=== PATIENT | male | born 1945 | race Caucasian/White ===

== ENCOUNTER → 2016-07-06 | Outpatient (CLI) | payer OTHER, BC | LOC: HYPER 06-28 09:40 | DX: I83.023 Varicose veins of left lower extremity with ulcer of ankle (principal); L97.322 Non-pressure chronic ulcer of left ankle with fat layer exposed; I12.9 Hypertensive chronic kidney disease with stage 1 through stage 4 chronic kidney disease, or unspecified chronic kidney disease; N18.2 Chronic kidney disease, stage 2 (mild); E66.01 Morbid (severe) obesity due to excess calories; I83.209 Varicose veins of unspecified lower extremity with both ulcer of unspecified site and inflammation; I48.91 Unspecified atrial fibrillation ==

== ENCOUNTER → 2016-07-12 | Outpatient (CLI) | payer OTHER, BC | LOC: HYPER 07:09 | DX: I83.023 Varicose veins of left lower extremity with ulcer of ankle (principal); L97.321 Non-pressure chronic ulcer of left ankle limited to breakdown of skin; E66.01 Morbid (severe) obesity due to excess calories; F34.1 Dysthymic disorder; I51.7 Cardiomegaly; I48.0 Paroxysmal atrial fibrillation; C61 Malignant neoplasm of prostate; I12.9 Hypertensive chronic kidney disease with stage 1 through stage 4 chronic kidney disease, or unspecified chronic kidney disease; N18.2 Chronic kidney disease, stage 2 (mild); F15.90 Other stimulant use, unspecified, uncomplicated ==

== ENCOUNTER → 2016-08-08 | Outpatient (CLI) | payer OTHER, BC | LOC: HYPER 07:02 | DX: I83.023 Varicose veins of left lower extremity with ulcer of ankle (principal); L97.322 Non-pressure chronic ulcer of left ankle with fat layer exposed; I83.228 Varicose veins of left lower extremity with both ulcer of other part of lower extremity and inflammation; E66.01 Morbid (severe) obesity due to excess calories; I48.0 Paroxysmal atrial fibrillation; I12.9 Hypertensive chronic kidney disease with stage 1 through stage 4 chronic kidney disease, or unspecified chronic kidney disease; N18.2 Chronic kidney disease, stage 2 (mild); Z68.43 Body mass index [BMI] 50.0-59.9, adult; Z85.46 Personal history of malignant neoplasm of prostate ==

== ENCOUNTER → 2016-08-29 | Outpatient (CLI) | payer OTHER, BC | LOC: HYPER 07:05 | DX: I83.223 Varicose veins of left lower extremity with both ulcer of ankle and inflammation (principal); L97.322 Non-pressure chronic ulcer of left ankle with fat layer exposed; E66.01 Morbid (severe) obesity due to excess calories; I48.0 Paroxysmal atrial fibrillation; I12.9 Hypertensive chronic kidney disease with stage 1 through stage 4 chronic kidney disease, or unspecified chronic kidney disease; N18.2 Chronic kidney disease, stage 2 (mild); Z85.46 Personal history of malignant neoplasm of prostate; Z68.43 Body mass index [BMI] 50.0-59.9, adult ==

== ENCOUNTER → 2016-09-24 | Outpatient (CLI) | payer OTHER, BC | LOC: HYPER 06:49 | DX: I83.223 Varicose veins of left lower extremity with both ulcer of ankle and inflammation (principal); I83.228 Varicose veins of left lower extremity with both ulcer of other part of lower extremity and inflammation; L97.322 Non-pressure chronic ulcer of left ankle with fat layer exposed; E66.01 Morbid (severe) obesity due to excess calories; I51.7 Cardiomegaly; I48.0 Paroxysmal atrial fibrillation; C61 Malignant neoplasm of prostate; I12.9 Hypertensive chronic kidney disease with stage 1 through stage 4 chronic kidney disease, or unspecified chronic kidney disease; N18.2 Chronic kidney disease, stage 2 (mild); Z68.43 Body mass index [BMI] 50.0-59.9, adult ==

== ENCOUNTER → 2016-10-15 | Outpatient (CLI) | payer OTHER, BC | LOC: HYPER 07:03 | DX: I83.223 Varicose veins of left lower extremity with both ulcer of ankle and inflammation (principal); L97.322 Non-pressure chronic ulcer of left ankle with fat layer exposed; E66.01 Morbid (severe) obesity due to excess calories; Z68.43 Body mass index [BMI] 50.0-59.9, adult; I48.0 Paroxysmal atrial fibrillation; C61 Malignant neoplasm of prostate; F34.1 Dysthymic disorder; I12.9 Hypertensive chronic kidney disease with stage 1 through stage 4 chronic kidney disease, or unspecified chronic kidney disease; N18.2 Chronic kidney disease, stage 2 (mild) ==

== ENCOUNTER → 2016-11-12 | Outpatient (CLI) | payer OTHER, BC | LOC: HYPER 07:39 | DX: I83.023 Varicose veins of left lower extremity with ulcer of ankle (principal); L97.322 Non-pressure chronic ulcer of left ankle with fat layer exposed; E66.01 Morbid (severe) obesity due to excess calories; I48.0 Paroxysmal atrial fibrillation; I12.9 Hypertensive chronic kidney disease with stage 1 through stage 4 chronic kidney disease, or unspecified chronic kidney disease; N18.2 Chronic kidney disease, stage 2 (mild); F34.1 Dysthymic disorder; Z85.46 Personal history of malignant neoplasm of prostate; Z68.43 Body mass index [BMI] 50.0-59.9, adult ==

== ENCOUNTER → 2017-04-01 | Outpatient (CLI) | payer OTHER | LOC: HYPER 03-19 06:50 | DX: I83.228 Varicose veins of left lower extremity with both ulcer of other part of lower extremity and inflammation (principal); L97.322 Non-pressure chronic ulcer of left ankle with fat layer exposed; F34.1 Dysthymic disorder; I51.7 Cardiomegaly; I48.0 Paroxysmal atrial fibrillation; E66.01 Morbid (severe) obesity due to excess calories; Z68.43 Body mass index [BMI] 50.0-59.9, adult; I12.9 Hypertensive chronic kidney disease with stage 1 through stage 4 chronic kidney disease, or unspecified chronic kidney disease; N18.9 Chronic kidney disease, unspecified; Z85.46 Personal history of malignant neoplasm of prostate ==

== ENCOUNTER → 2017-05-14 | Outpatient (CLI) | payer OTHER | LOC: HYPER 06:48 | DX: I83.228 Varicose veins of left lower extremity with both ulcer of other part of lower extremity and inflammation (principal); L97.322 Non-pressure chronic ulcer of left ankle with fat layer exposed; I83.023 Varicose veins of left lower extremity with ulcer of ankle; F34.1 Dysthymic disorder; I51.7 Cardiomegaly; I48.0 Paroxysmal atrial fibrillation; E66.01 Morbid (severe) obesity due to excess calories; Z68.43 Body mass index [BMI] 50.0-59.9, adult ==

== ENCOUNTER → 2017-07-10 | Outpatient (CLI) | payer OTHER, BC | LOC: HYPER 06-10 14:53 | DX: I83.228 Varicose veins of left lower extremity with both ulcer of other part of lower extremity and inflammation (principal); L97.322 Non-pressure chronic ulcer of left ankle with fat layer exposed; I48.91 Unspecified atrial fibrillation; E66.01 Morbid (severe) obesity due to excess calories; Z68.43 Body mass index [BMI] 50.0-59.9, adult ==

== ENCOUNTER → 2017-09-11 | Outpatient (CLI) | payer OTHER, BC | LOC: HYPER 06:48 | DX: I83.228 Varicose veins of left lower extremity with both ulcer of other part of lower extremity and inflammation (principal); L97.821 Non-pressure chronic ulcer of other part of left lower leg limited to breakdown of skin; L97.322 Non-pressure chronic ulcer of left ankle with fat layer exposed; I13.10 Hypertensive heart and chronic kidney disease without heart failure, with stage 1 through stage 4 chronic kidney disease, or unspecified chronic kidney disease; N18.2 Chronic kidney disease, stage 2 (mild); I48.0 Paroxysmal atrial fibrillation; E66.01 Morbid (severe) obesity due to excess calories; C61 Malignant neoplasm of prostate; F34.1 Dysthymic disorder; Z68.43 Body mass index [BMI] 50.0-59.9, adult ==

== ENCOUNTER → 2017-12-18 | Outpatient (CLI) | payer OTHER, BC | LOC: HYPER 06:58 | DX: I83.223 Varicose veins of left lower extremity with both ulcer of ankle and inflammation (principal); L97.322 Non-pressure chronic ulcer of left ankle with fat layer exposed; L97.821 Non-pressure chronic ulcer of other part of left lower leg limited to breakdown of skin; E66.01 Morbid (severe) obesity due to excess calories; B95.2 Enterococcus as the cause of diseases classified elsewhere; C61 Malignant neoplasm of prostate; I12.9 Hypertensive chronic kidney disease with stage 1 through stage 4 chronic kidney disease, or unspecified chronic kidney disease; N18.2 Chronic kidney disease, stage 2 (mild); I48.0 Paroxysmal atrial fibrillation; I51.7 Cardiomegaly; F34.1 Dysthymic disorder; Z68.43 Body mass index [BMI] 50.0-59.9, adult; Z85.46 Personal history of malignant neoplasm of prostate ==

== ENCOUNTER → 2018-01-29 | Outpatient (CLI) | payer OTHER, BC | LOC: HYPER 06:48 | DX: I83.228 Varicose veins of left lower extremity with both ulcer of other part of lower extremity and inflammation (principal); L97.822 Non-pressure chronic ulcer of other part of left lower leg with fat layer exposed; I83.023 Varicose veins of left lower extremity with ulcer of ankle; L97.322 Non-pressure chronic ulcer of left ankle with fat layer exposed; E66.01 Morbid (severe) obesity due to excess calories; I12.9 Hypertensive chronic kidney disease with stage 1 through stage 4 chronic kidney disease, or unspecified chronic kidney disease; N18.2 Chronic kidney disease, stage 2 (mild); I51.7 Cardiomegaly; I48.0 Paroxysmal atrial fibrillation; C61 Malignant neoplasm of prostate; B95.2 Enterococcus as the cause of diseases classified elsewhere; I48.91 Unspecified atrial fibrillation; F34.1 Dysthymic disorder; Z68.43 Body mass index [BMI] 50.0-59.9, adult ==

== ENCOUNTER → 2018-02-26 | Outpatient (CLI) | payer OTHER, BC | LOC: HYPER 06:57 | DX: I83.228 Varicose veins of left lower extremity with both ulcer of other part of lower extremity and inflammation (principal); L97.821 Non-pressure chronic ulcer of other part of left lower leg limited to breakdown of skin; I83.023 Varicose veins of left lower extremity with ulcer of ankle; L97.322 Non-pressure chronic ulcer of left ankle with fat layer exposed; B95.2 Enterococcus as the cause of diseases classified elsewhere; C61 Malignant neoplasm of prostate; E66.01 Morbid (severe) obesity due to excess calories; I12.9 Hypertensive chronic kidney disease with stage 1 through stage 4 chronic kidney disease, or unspecified chronic kidney disease; N18.2 Chronic kidney disease, stage 2 (mild); I51.7 Cardiomegaly; I48.0 Paroxysmal atrial fibrillation; F34.1 Dysthymic disorder; Z68.43 Body mass index [BMI] 50.0-59.9, adult ==

== ENCOUNTER → 2018-04-02 | Outpatient (CLI) | payer OTHER, BC | LOC: HYPER 06:51 | DX: I83.228 Varicose veins of left lower extremity with both ulcer of other part of lower extremity and inflammation (principal); L97.821 Non-pressure chronic ulcer of other part of left lower leg limited to breakdown of skin; E66.01 Morbid (severe) obesity due to excess calories; B95.2 Enterococcus as the cause of diseases classified elsewhere; C61 Malignant neoplasm of prostate; I12.9 Hypertensive chronic kidney disease with stage 1 through stage 4 chronic kidney disease, or unspecified chronic kidney disease; N18.2 Chronic kidney disease, stage 2 (mild); I51.7 Cardiomegaly; I48.0 Paroxysmal atrial fibrillation; F34.1 Dysthymic disorder; Z68.43 Body mass index [BMI] 50.0-59.9, adult ==

== ENCOUNTER → 2018-05-14 | Outpatient (CLI) | payer OTHER, BC | LOC: HYPER 06:52 | DX: I83.228 Varicose veins of left lower extremity with both ulcer of other part of lower extremity and inflammation (principal); L97.322 Non-pressure chronic ulcer of left ankle with fat layer exposed; I12.9 Hypertensive chronic kidney disease with stage 1 through stage 4 chronic kidney disease, or unspecified chronic kidney disease; N18.2 Chronic kidney disease, stage 2 (mild); I51.7 Cardiomegaly; I48.0 Paroxysmal atrial fibrillation; E66.01 Morbid (severe) obesity due to excess calories; C61 Malignant neoplasm of prostate; B95.2 Enterococcus as the cause of diseases classified elsewhere; F34.1 Dysthymic disorder; Z68.42 Body mass index [BMI] 45.0-49.9, adult ==

== ENCOUNTER → 2018-06-25 | Outpatient (CLI) | payer OTHER, BC | LOC: HYPER 06:37 | DX: I83.228 Varicose veins of left lower extremity with both ulcer of other part of lower extremity and inflammation (principal); L97.322 Non-pressure chronic ulcer of left ankle with fat layer exposed; E66.01 Morbid (severe) obesity due to excess calories; I12.9 Hypertensive chronic kidney disease with stage 1 through stage 4 chronic kidney disease, or unspecified chronic kidney disease; N18.2 Chronic kidney disease, stage 2 (mild); B95.2 Enterococcus as the cause of diseases classified elsewhere; C61 Malignant neoplasm of prostate; I51.7 Cardiomegaly; I48.0 Paroxysmal atrial fibrillation; R60.0 Localized edema; F34.1 Dysthymic disorder; Z68.43 Body mass index [BMI] 50.0-59.9, adult ==

== ENCOUNTER → 2018-08-21 | Outpatient (CLI) | payer OTHER, BC | LOC: HYPER 08-18 09:49 | DX: I83.203 Varicose veins of unspecified lower extremity with both ulcer of ankle and inflammation (principal); L97.322 Non-pressure chronic ulcer of left ankle with fat layer exposed; L97.821 Non-pressure chronic ulcer of other part of left lower leg limited to breakdown of skin; I12.9 Hypertensive chronic kidney disease with stage 1 through stage 4 chronic kidney disease, or unspecified chronic kidney disease; N18.2 Chronic kidney disease, stage 2 (mild); B95.2 Enterococcus as the cause of diseases classified elsewhere; C61 Malignant neoplasm of prostate; E66.01 Morbid (severe) obesity due to excess calories; I51.7 Cardiomegaly; I48.0 Paroxysmal atrial fibrillation; R60.0 Localized edema; F34.1 Dysthymic disorder; Z68.43 Body mass index [BMI] 50.0-59.9, adult ==

== ENCOUNTER → 2018-10-15 | Outpatient (CLI) | payer OTHER, BC | LOC: HYPER 07:00 | DX: I87.312 Chronic venous hypertension (idiopathic) with ulcer of left lower extremity (principal); L97.322 Non-pressure chronic ulcer of left ankle with fat layer exposed; I12.9 Hypertensive chronic kidney disease with stage 1 through stage 4 chronic kidney disease, or unspecified chronic kidney disease; N18.2 Chronic kidney disease, stage 2 (mild); I51.7 Cardiomegaly; I48.0 Paroxysmal atrial fibrillation; C61 Malignant neoplasm of prostate; L30.9 Dermatitis, unspecified; B95.2 Enterococcus as the cause of diseases classified elsewhere; I48.91 Unspecified atrial fibrillation; E66.01 Morbid (severe) obesity due to excess calories; R60.0 Localized edema; F34.1 Dysthymic disorder; Z68.43 Body mass index [BMI] 50.0-59.9, adult ==

== ENCOUNTER → 2018-11-10 | Outpatient (CLI) | payer OTHER, BC ==
[~2018-11-10] VITALS: Ht 182.9 cm; Wt 192.8 kg
[~2018-11-10] MED LIST: BACTRIM DS TAB1 EACH PO; COZAAR 50 MG TA50 M1 PO; FLOMAX0.4 MG PO; GERI-HYDROLAC140 GM TOP; HYDROCHLOROTH12.5 M1 PO; LIPITOR40 MG PO; MULTI VITAMIN1 EACH PO; RANITIDINE HCL300 M1 PO; TENORMIN50 MG PO; VITAMIN D1000 UNI1 PO; XARELTO20 MG PO
--- NOTE | 2018-11-12 19:06 | PATH ---
[facility] [address] [place] [address] PATHOLOGY RPT PROCEDURE Name: CALVIN GREEN JR Room #: [facility].#: [id number] ������������������ Admission: 11/10/18 ������������������ Date of : 49 Discharge: Report #: [id number] Path Case #: [id number] [facility] Accession Number: [id number] . 01 Material submitted: . colon - POLYP AT MID-TRANSVERSE. Modifiers: mid, transverse . 01 Clinical history: . Hx of polyps . 02 Diagnosis: Polyp, mid transverse, endoscopic biopsy: - Tubular adenoma. - Negative for high grade dysplasia. . (IUV:mml; 11/12/2018) QL 11/12/2018 1225 Local . 02 Electronically signed: . Rosemary Vilchis MD, Pathologist NPI- [id number] . 01 Gross description: . Received in formalin labeled "Calvin Green Jr, BX of polyp at mid-transverse," are three segments of dennis-brown soft tissue measuring 0.5 x 0.4 x 0.2 cm in aggregate dimensions and ranging from 0.2 to 0.3 cm in maximum dimension. The specimen is submitted entirely in cassette A1. ([facility]; 11/11/2018) XDC/XDC 11/11/2018 0858 Local . 02 Pathologist provided ICD-10: D12.3, Z86.010 . 02 CPT . 469529 Specimen Comment: A courtesy copy of this report has been sent to Specimen Comment: [phone], . Specimen Comment: Report sent to / DR HUNT Performed at: [address] [id number] MD Jah Lisa MD Phone: [phone] Performed at: [address] [id number] MD Rosemary Vilchis MD Phone: [phone]
== END | disposition home or self-care (01) ==
LOC: GI 11:22
DX: Z12.11 Encounter for screening for malignant neoplasm of colon (principal); D12.3 Benign neoplasm of transverse colon; K57.30 Diverticulosis of large intestine without perforation or abscess without bleeding; K64.8 Other hemorrhoids; K31.89 Other diseases of stomach and duodenum; G47.30 Sleep apnea, unspecified; I10 Essential (primary) hypertension; E78.5 Hyperlipidemia, unspecified; I48.91 Unspecified atrial fibrillation; Z86.010 Personal history of colon polyps; Z86.73 Personal history of transient ischemic attack (TIA), and cerebral infarction without residual deficits; Z85.46 Personal history of malignant neoplasm of prostate; Z98.890 Other specified postprocedural states; Z88.0 Allergy status to penicillin; Z79.899 Other long term (current) drug therapy
CPT/HCPCS: 62110; 62900

== ENCOUNTER → 2018-11-26 | Outpatient (CLI) | payer OTHER, BC | LOC: HYPER 10-29 16:19 | DX: I83.023 Varicose veins of left lower extremity with ulcer of ankle (principal); L97.322 Non-pressure chronic ulcer of left ankle with fat layer exposed; I83.028 Varicose veins of left lower extremity with ulcer other part of lower leg; L97.822 Non-pressure chronic ulcer of other part of left lower leg with fat layer exposed; I87.2 Venous insufficiency (chronic) (peripheral); B95.2 Enterococcus as the cause of diseases classified elsewhere; L84 Corns and callosities; C61 Malignant neoplasm of prostate; I12.9 Hypertensive chronic kidney disease with stage 1 through stage 4 chronic kidney disease, or unspecified chronic kidney disease; N18.2 Chronic kidney disease, stage 2 (mild); I51.7 Cardiomegaly; F34.1 Dysthymic disorder; I48.0 Paroxysmal atrial fibrillation; E66.01 Morbid (severe) obesity due to excess calories; Z68.43 Body mass index [BMI] 50.0-59.9, adult; Z79.01 Long term (current) use of anticoagulants ==